=== PATIENT | male | born 1985 | race Caucasian/White ===

== ENCOUNTER 2019-02-14 10:01 | Emergency (ER) | payer OTHER, MEDICAID ==
[~2019-02-14] VITALS: Ht 175.3 cm; Wt 65.8 kg
--- NOTE | 2019-02-14 10:01 | NUR ---
PATIENT TO BED 2 BY EMS AT THIS TIME.
[2019-02-14 10:05] VITALS: BP 120/64
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
--- NOTE | 2019-02-14 10:26 | NUR ---
DR. YANCEY EVALUATING PT AT BEDSIDE.
[2019-02-14] MEDS ORDERED: traMADol 50 MG TAB PO ONE (10:35)
[2019-02-14] MEDS ORDERED: IBUPROFEN 600 MG TAB PO ONE (10:35)
--- NOTE | 2019-02-14 10:50 | NUR ---
OPERATOR CATALYST CONCENTRATION AT BEDSIDE TO TAKE PT TO XRAY
--- NOTE | 2019-02-14 12:22 | NUR ---
PT STATES PAIN OF 5-6/10 NOW. NOTED TO BE SCROLLING THROUGH PHONE, NAD.
[2019-02-14 12:52] VITALS: BP 113/75
== END 2019-02-14 12:52 | disposition home or self-care (01) ==
LOC: MED 10:01
DX: S39.012A Strain of muscle, fascia and tendon of lower back, initial encounter (principal); S16.1XXA Strain of muscle, fascia and tendon at neck level, initial encounter; V89.2XXA Person injured in unspecified motor-vehicle accident, traffic, initial encounter; Y93.89 Activity, other specified; Y92.89 Other specified places as the place of occurrence of the external cause; Y99.8 Other external cause status
CPT/HCPCS: 71046; 72040; 72100; 99283